=== PATIENT | female | born 1990 | race Caucasian/White ===

== ENCOUNTER → 2018-05-06 | Outpatient (CLI) | payer BC ==
[~2018-05-06] MED LIST: MOTRIN 800800 MG/TAB PO; OSCAL 500 TAB500 MG PO; PERCOCET 325 MG1 TA2 PO; PRENATAL MVI PO; PROAIR HFA0.09 MG/AC IH; ZYRTEC 10MG10 MG PO
== END ==
LOC: LAC 10:33
DX: Z39.1 Encounter for care and examination of lactating mother (principal); Z71.89 Other specified counseling

== ENCOUNTER → 2018-05-13 | Outpatient (CLI) | payer BC | LOC: OLC 10:27 | DX: Z39.1 Encounter for care and examination of lactating mother (principal); Z71.89 Other specified counseling ==

== ENCOUNTER 2021-05-29 18:08 | Inpatient (IN) | payer BC ==
[~2021-05-29] VITALS: Ht 167.6 cm; Wt 122.3 kg
[2021-05-29] VITALS (9 sets, daily range): BP systolic 110–129; BP diastolic 61–75; PULSE 53–85; TEMP 97.8–98.6
--- NOTE | 2021-05-29 18:20 | NUR ---
PT PRESENTS TO UNIT AND SHOWN TO ROOM LDR 4. PT COMPLAINS OF POSSIBLE SROM @ 1700 OF CLEAR FLUIDS WITH NO ODOR. PT STATE SHE HAS INCONSISTENT CONTRACTIONS. PT IS , 38.6WEEKS, GBS -, RI, AB+. PT DENIES VAGINAL BLEEDING OR DECREASED MOVEMENT. PLAN OF CARE DISCUSSED AND PT VERBALIZED AN UNDERSTANDING
--- NOTE | 2021-05-29 18:28 | NUR ---
EFM AND TOCO APPLIED
--- NOTE | 2021-05-29 18:35 | NUR ---
POSITIVE AMNITEST AT THIS TIME. FLUIDS ARE CLEAR AND SCANT AMOUNT WITH NO ODOR.
[2021-05-29] MEDS ORDERED: SINGULAIR 110 MG/TAB (18:48)
[2021-05-29] MEDS ORDERED: COLACE 100100 MG/CAP (18:48)
--- NOTE | 2021-05-29 19:35 | NUR ---
20 G IV PLACED IN PT'S RIGHT HAND. LABS COLLECTED AT THIS TIME
[2021-05-29 20:05] LABS: BASO % 0.4 % (0.0-2.0); EOS # 0.2 K/mm3 (0.0-0.7); EOS % 1.7 % (0.0-4.0); GRAN # 6.9 K/mm3 (1.4-6.5); GRAN % 63.6 % (42.2-75.2); HEMOGLOBIN 11.4 g/dl (12.5-16.0); LYMPH # 2.9 K/mm3 (1.2-3.4); LYMPH % 26.6 % (20.0-51.0); MEAN CELL VOLUME 84 fl (80.0-100.0); MEAN CORPUSCULAR HEMOGLOBIN 28 pg (27-31); MEAN CORPUSCULAR HGB CONC 34 g/dl (33.0-37.0); MEAN PLATELET VOLUME 12.4 fl (7.4-10.4); MONO # 0.8 K/mm3 (0.1-0.6); MONO % 7.2 % (1.7-9.3); PLATELET COUNT 243 K/mm3 (130-400); RED BLOOD COUNT 4.02 M/mm3 (4.10-5.30); REDCELL DISTRIBUTION WIDTH-CV 14.1 % (11.5-14.5)
[2021-05-29 20:06] LABS: HEMATOCRIT 33.9 % (37.0-47.0)
--- NOTE | 2021-05-29 20:28 | NUR ---
EFM AND TOCO REAPPLIED. PT RESTING IN BED ON LEFT LATERAL SIDE. PT STATES CONTRACTIONS ARE FEELING STRONGER AND DENIES FURTHER NEEDS AT THIS TIME
--- NOTE | 2021-05-29 20:45 | NUR ---
PT RESTING IN BED RN ENCOURAGED PO ORAL FLUIDS TO INCREASE BABE'S VARIABILITY. PT VERBALIZED AN UNDERSTANDING. PT DENIES FURTHER NEEDS AT THIS TIME
--- NOTE | 2021-05-29 20:52 | NUR ---
PT TURNED TO RIGHT LATERAL SIDE. BREAKS IN FHTS ARE OBSERVED. RN AT BEDSIDE TO ADJUST MONITOR WITH MATERNAL POSITION. AUDIBLE FHTS ARE HEARD IN THE 130S TO 140S.
--- NOTE | 2021-05-29 21:15 | NUR ---
EILEEN ZAPATA CHARGE PRESENT AT BEDSIDE TO ASSIST WITH GETTING BABE ON MONITOR
--- NOTE | 2021-05-29 21:28 | NUR ---
RN AT BEDSIDE ADJUSTING EFM. RN DISCUSSED FSE PLACEMENT WITH MOTHER AND MOTHER GAVE VERBAL PERMISSION FOR FSE PLACEMENT
--- NOTE | 2021-05-29 21:30 | NUR ---
BREAKS IN FHTS ARE OBSERVED RN AT BEDSIDE THOUGHOUT ADJUSTING MONITOR AND MATERNAL POSITION. FHTS ARE OBSERVED IN 120S WITH ACCELS PRESENT AND MOD. VARIABILITY. CONTRACTIONS Q 2-4MIN
--- NOTE | 2021-05-29 22:00 | NUR ---
FSE PLACED BY EILEEN ZAPATA CHARGE AND CHECHED. PT 3CM, 70%, -2 AND POSTERIOR
--- NOTE | 2021-05-29 22:09 | NUR ---
CALL PLACED TO CERTIFIED DRIVER EXAMINER [facility] FOR [facility]
--- NOTE | 2021-05-29 22:18 | NUR ---
COFFEE GROWER PRESENT IN ROOM AND DISCUSSING EPIDURAL PROCEDURE WITH PT
--- NOTE | 2021-05-29 22:50 | NUR ---
FSE NO LONGER ATTACHED TO BABE'S HEAD AND REMOVED A TTHIS TIME. PALOMARES CATHETER PLACED AT THIS TIME
--- NOTE | 2021-05-29 23:20 | NUR ---
PITOCIN STARTED AT 2MUNIT/MIN AND VERIFIED AT BEDSIDE WITH EILEEN ZAPATA CHARGE
--- NOTE | 2021-05-29 23:35 | NUR ---
PT FLIPPED TO RIGHT LATERAL SIDE WITH PEANUT BALL BETWEEN LEGS. BREAKS IN FHTS ARE OBSERVED RN AT BEDSIDE TO ADJUST MONITOR. PT DENIES FURTHER NEEDS AT THIS TIME. TOCO ADJUSTED AND ZEROED
--- NOTE | 2021-05-29 23:45 | NUR ---
TOCO ADJUSTED AND ZEROED. PT DENIES FEELING CONTRACTIONS. PT DENIES FURTHER NEEDS AT THIS TIME
[2021-05-30] VITALS (27 sets, daily range): BP systolic 100–146; BP diastolic 53–99; PULSE 55–116; TEMP 98.1–98.4
--- NOTE | 2021-05-30 00:03 | NUR ---
DR ROLES PRESENT AT BEDSIDE TO DISCUSS PLAN OF CARE AND PT VERBALIZED AN UNDERSTANDING. PT DENIES FURTHER NEEDS AT THIS TIME
--- NOTE | 2021-05-30 00:30 | NUR ---
PT FLIPPED TO LEFT LATERAL SIDE WITH PEANUT BALL BETWEEN LEGS. PT STATES SHE WOULD LIKE TO GET A NAP AND REST. NO SIGNS OF DISTRESS. PT DENIES FURTHER NEEDS AT THIS TIME
--- NOTE | 2021-05-30 00:37 | NUR ---
VISIBLE BREAKS IN FHTS IS OBSERVED RN AT BEDSIDE AND ADJUSTS MONITOR
--- NOTE | 2021-05-30 01:36 | NUR ---
LATE DECELERATIONS ARE OBSERVED, RN AT BEDSIDE TO CHANGE MATERNAL POSITION. MOTHER TURNED FROM RIGHT LATERAL SIDE TO THRONE POSITION. PT TDENIES FURTHER NEEDS AT THIS TIME.
--- NOTE | 2021-05-30 02:02 | NUR ---
VARIABLE DECERLATION IS OBSERVED BY Catalina HERCULES RN AND Catalina HERCULES RN PRESENT AT BEDSIDE TO TURN PATIENT
--- NOTE | 2021-05-30 02:05 | NUR ---
PT STARTS TO REPORT FEELING PRESSURE WITH SOME CONTRACTIONS BUT DENIES THE URGE TO PUSH
--- NOTE | 2021-05-30 02:22 | NUR ---
PT RESTING IN BED, NO SIGNS OF DISTRESS, PT STATES SHE FEELS PRESSURE WITH SOME CONTRACTIONS. DENIES THE URGE TO PUSH. TOCO AJUSTED AT THIS TIME
--- NOTE | 2021-05-30 03:41 | NUR ---
PT RESTING IN BED WATCHING TV, NO SIGNS OF DISTRESS. BREAKS IN FHTS ARE OBSERVED. RN AT BEDSIDE TO ADJUST MONITOR. PT DENIES FURTHER NEEDS
--- NOTE | 2021-05-30 04:15 | NUR ---
IV BOLUS START AT THIS TIME AND STERILE VAGINA EXAM PT IS 10CM +1 STATION
--- NOTE | 2021-05-30 04:20 | NUR ---
PT PUSHED WELL WITH DESCENT. PALOMARES DISCONTINUED AT THIS TIME
--- NOTE | 2021-05-30 04:37 | NUR ---
ROLES PRESENT AT BEDSIDE AND REVIEWED STRIP
--- NOTE | 2021-05-30 04:45 | NUR ---
VISIBLE BREAKS IN FHTS ARE OBSERVED DURING CONTRACTIONS. PROVIDER IS AT BEDSIDE AND REVIEWED STRIP
--- NOTE | 2021-05-30 06:15 | NUR ---
BEDSIDE REPORT GIVEN TO DEE ZAPATA AND CARE WAS TRANSFERRED
--- NOTE | 2021-05-30 20:20 | NUR ---
PT UP TO THE BATHROOM BRUSHING, NO SIGNS OF DISTRESS. PT GIVEN 800MG PO MOTRIN AND STOOL SOFTENER. PT DEN IES FUTHER NEEDS AT THIS TIME
[2021-05-31 00:15] VITALS: BP 108/55; PULSE 72; TEMP 98.1
--- NOTE | 2021-05-31 05:10 | NUR ---
NELSONE BROUGHT BACK TO ROOMING IN AT THIS TIME. MOTHER GIVEN ONE 800MG MOTRIN FOR PERINEAL PAIN RATED AT 5/10. MOTHER DENIES FURTHER NEEDS AT THIS TIME.
[2021-05-31 08:00] VITALS: BP 128/65; PULSE 82; TEMP 97.6
[2021-05-31] MEDS ORDERED: PERCOCET 325 MG1 TA2 PO (08:05)
[2021-05-31] MEDS ORDERED: IBU800 M1 PO (08:05)
--- NOTE | 2021-05-31 09:12 | NUR ---
Initial visit; Parents thanked [facility] [employer] for offering congratulations and God's blessings for the of their daughter. Tab Builder thanked family for choosing [facility]
== END 2021-05-31 11:05 | disposition home or self-care (01) | DRG 768 ==
LOC: LDRO 18:08 → LDR 18:20 → OB 05-30 09:21
PROVIDERS: Obstetrics & Gynecology; ADMIT Obstetrics & Gynecology
PROC: 10E0XZZ Delivery of Products of Conception, External Approach (ICD-10-PCS; principal; 2021-05-30)
PROC: 0UQJXZZ Repair Clitoris, External Approach (ICD-10-PCS; 2021-05-30)
PROC: 0KQM0ZZ Repair Perineum Muscle, Open Approach (ICD-10-PCS; 2021-05-30)
PROC: 0UQMXZZ Repair Vulva, External Approach (ICD-10-PCS; 2021-05-30)
DX: O99.214 Obesity complicating childbirth (principal); Z37.0 Single live birth; O99.354 Diseases of the nervous system complicating childbirth; G57.20 Lesion of femoral nerve, unspecified lower limb; O69.81X0 Labor and delivery complicated by cord around neck, without compression, not applicable or unspecified; O71.82 Other specified trauma to perineum and vulva; O70.1 Second degree perineal laceration during delivery; O71.89 Other specified obstetric trauma; Z3A.39 39 weeks gestation of pregnancy; Z23 Encounter for immunization
CPT/HCPCS: J2590; J7120